=== PATIENT | male | born 1985 | race Two or more races ===

== ENCOUNTER 2021-06-04 11:56 | Emergency (ER) | payer OTHER ==
[~2021-06-04] VITALS: Ht 190.5 cm; Wt 105.5 kg
[2021-06-04 12:20] VITALS: BP 130/71
[2021-06-04] MEDS ORDERED: ERYT1OIN3 OD (14:27)
--- NOTE | 2021-06-04 14:27 | PHYS DOC ---
Past Medical History Past Surgical History: No Surgical History General Adult EDM: Chief Complaint: EYE PROBLEMS HPI: HPI: Patient is a 35-year-old male who presents to the emergency department for right eye redness, itching, drainage that started yesterday. Patient denies any injury or foreign body. He denies any sick exposures. He reports that his vision is mildly blurry but has no loss of vision. Review of Systems: Review of Systems: Eyes: See HPI HENT: See HPI Neurologic: Denies headache Heart Score: C/O Chest Pain: N/A Risk Factors: Risk Factors: DM, Current or recent (<one month) smoker, HTN, HLP, family histo ry of CAD, obesity. Risk Scores: Score 0 - 3: 2.5% MACE over next 6 weeks - Discharge Home Score 4 - 6: 20.3% MACE over next 6 weeks - Admit for Clinical Observation Score 7 - 10: 72.7% MACE over next 6 weeks - Early Invasive Strategies Physical Exam: PE: Constitutional: Well developed, well nourished, no acute distress, non-toxic appearance. [] HENT: Normocephalic, atraumatic, bilateral external ears normal, oropharynx moist, no oral exudates, nose normal. [] Eyes: PERRL, 3 mm bilaterally, EOMI, erythematous conjunctiva, crusting noted along right lower lash line [] Neck: Normal range of motion, no tenderness, supple, no stridor. [] Cardiovascular: Normal peripheral perfusion Lungs & Thorax: Normal work of breathing, no tachypnea Abdomen: Flat and soft Skin: Warm, dry, no erythema, no rash. [] Back: Range of motion Extremities: No tenderness, no cyanosis, no clubbing, ROM intact, no edema. [] Neurologic: Alert and oriented X 3, normal motor function, normal sensory fu nction, no focal deficits noted. [] Psychologic: Affect normal, judgement normal, mood normal. [] Current Patient Data: Vital Signs: Vital Signs Date Time Temp Pulse Resp B/P (MAP) Pulse Ox O2 Delivery O2 Flow Rate FiO2 06/04/21 12:20 97.8 77 10 130/71 (90) 98 Room Air 97.8 EKG: EKG: [] Radiology/Procedures: Radiology/Procedures: [] Course & Med Decision Making: Course & Med Decision Making Pertinent Labs and Imaging studies reviewed. (See chart for details) [] Patient resents emergency department for right eye redness, itching and drainage. He denies any injury or possible foreign body. It appears that patient has conjunctivitis and this will be treated with antibiotic eyedrop. Patient advised to follow-up with his primary care provider. I discussed with patient all findings and diagnostic testing as well as the need to follow-up w ith PCP for further evaluation and treatment or return to the ER if any new or worsening symptoms. Strict return precautions were also discussed at length. Patient voiced understanding and agreement with the plan. Patient is hemodynamically stable at the time of disposition. Dragon Disclaimer: RICS Software Disclaimer: This electronic medical record was generated, in whole or in part, using a voice recognition dictation system. Departure Departure Impression: Primary Impression: Conjunctivitis Qualified Codes: H10.31 - Unspecified acute conjunctivitis, right eye Disposition: HOME / SELF CARE / HOMELESS Condition: GOOD Referrals: NO PCP (PCP) Patient Instructions: Conjunctivitis (Viral and Bacterial) Additional Instructions: You were seen in the emergency department for right eye redness, itching. It appears that you have conjunctivitis which will be treated with antibiotic eye ointment. Please use this as directed. Ensure proper hygiene, do not scratch or touch her eyes. Follow-up with your primary care provider within 2 days if your symptoms do not improve. You may need to follow-up with an change management. I have attached information for an change management in which she can call to follow-up if your symptoms not improve. Return to the emergency department if your symptoms worsen, you develop high fevers, intractable nausea or vomiting, severe headache, any new or worsening concerns. EMERGENCY DEPARTMENT GENERAL DISCHARGE INSTRUCTIONS Thank you for coming to [facility] Emergency Department (ED) today and trusting us with you care. We trust that you had a positive experience in our Emergency Department. If you wish to speak to the department management, you may call the Director at [phone]. YOUR FOLLOW UP INSTRUCTIONS ARE FOLLOWS: 1. Do you have a private Doctor? If you do not have a private doctor, please ask for a resource list of physicians or clinics that may be able to assist you with follow up care. 2. The Emergency Physicain has interpreted your x-rays. The X-Ray specialist will also review them. If there is a change in the findings, you will be notified in 48 hours when at all possible. 3. A lab test or culture has been done, your results will be reviewed and you will be notified if you need a change in treatment. ADDITIONAL INSTRUCTIONS AND INFORMATION: 1. Your care today has been supervised by a physician who is specially trained in emergency care. Many problems require more than one evaluation for a complete diagnosis and treatment. We recommend that you schedule your follow up appointment as recommended to ensure complete treatment of you illness or injury. If you are unable to obtain follow up care and continue to have a problem, or if your condition worsens, we recommend that you return to the ED. 2. We are not able to safely determine your condition over the phone nor are we able to give sound medical advice over the phone. For these safety reasons, if you call for medical advice we will ask you to come to the ED for further evaluation. 3. If you have any questions regarding these discharge instructions please call the ED at [phone]. SAFETY INFORMATION: In the interest of safety, wellness, and injury prevention; we encourage you to wear your sealbelt, if you smoke; quite smoking, and we encourage family to use a protective helmet for bicycling and other sporting events that present an increased risk for head injury. IF YOUR SYMPTOMS WORSEN OR NEW SYMPTOMS DEVELOP, OR YOU HAVE CONCERNS ABOUT YOUR CONDITION; OR IF YOUR CONDITION WORSENS WHILE YOU ARE WAITING FOR YOUR FOLLOW UP APPOINTMENT; EITHER CONTACT YOUR PRIMARY CARE DOCTOR, THE PHYSICIAN WHOSE NAME AND NUMBER YOU WERE GIVEN, OR RETURN TO THE ED IMMEDIATELY. Scripts Erythromycin Base (Erythromycin) 1 Gm Oint...g. 1 GM OD QID for conjunctivitis for 7 Days, #1 MISC 0 Refills 1/2 inch along lower lash line 4-6 times a day for 7 days. Prov: [facility] DIRECTOR 06/04/21 [facility] DIRECT[facility] Jun 04, 2021 14:27
== END 2021-06-04 14:58 | disposition home or self-care (01) ==
LOC: ER 11:56
DX: H10.31 Unspecified acute conjunctivitis, right eye (principal)
CPT/HCPCS: 99283